=== PATIENT | male | born 1950 | race Caucasian/White ===

== ENCOUNTER 2019-01-19 02:57 | Observation (INO) | payer OTHER, MEDICARE ==
--- NOTE | 2019-01-19 03:10 | PDOC ---
History of Present Illness - General Chief Complaint: Pain, Acute Stated Complaint: CHEST DISCOMFORT X 3 HOURS Time Seen by Provider: 01/19/19 03:10 History Source: Patient Exam Limitations: No Limitations - History of Present Illness Initial Comments: 01/19/19 03:15 This is a 60-year-old male who comes in complaining of left-sided chest pain associated with some nausea and diaphoresis and radiation to his axilla. Pain is primarily to the left of the sternum. Patient said it is worse when he takes a deep breath or worse when he massages the area. Patient has history of hypertension, high cholesterol and is prediabetic with a family history of coronary artery disease. Allergies: as per nursing notes Past Medical History: As per HPI Social history: Lives with family. No smoking. No alcohol. No illicit drugs. Surgical history: None General: No fevers or chills, no weakness, no weight loss HEENT: No change in vision. No sore throat,. No ear pain CardioVascular: + chest discomfort. No shortness of breath Respiratory:No cough, or wheezing. Gastrointestinal: + nausea, vomiting, diarrhea or constipation, No rectal bleeding Genitourinary: No dysuria, hematuria, or frequency Musculoskeletal: No joint or muscle pain or swelling Neurologic: No headache, vertigo, dizziness or loss of consciousness Psychiatric: nor depression Skin: No rashes or easy bruising Endocrine: no increased thirst or abnormal weight change Allergic: no skin or latex allergy All other systems reviewed and normal Exam: General: Well-nourished well-developed individual, no acute distress HEENT: Throat: Normal, tonsils normal, no erythema or exudate Neck: Supple, no meningeal signs, no lymphadenopathy Eyes::Pupils equal reactive and round, extraocular motion intact Chest: Nontender to palpation Cardiac: S1-S2 normal, regular rate and rhythm, no murmurs rubs or gallops Respiratory: Lungs clear to auscultation bilateral Abdomen: Soft, nondistended, normal bowel sounds, there is no tenderness on palpation diffusely Extremities: Warm, dry, no cyanosis, clubbing, or edema Skin: No rashes Neuro: Alert and oriented x3, CN II - XII intact, nonfocal exam with normal strength, normal sensation, normal reflexes, normal gait, Psych: Normal mood and affect Assessment and plan: This is a 60-year-old male with left-sided chest pain associated with some nausea and diaphoresis. Patient's work-up was negative including EKG, chest x-ray and labs. However patient's heart score is 4 and based on his multiple risk factors and age patient will be admitted for further evaluation and rule out ACS Past History - Past Medical History Allergies/Adverse Reactions: Allergies Allergy/AdvReac Type Severity Reaction Status Date / Time No Known Allergies Allergy Unverified 02/15/14 05:59 Home Medications: Ambulatory Orders Amlodipine Besylate 2.5 mg PO DAILY 01/19/19 Paroxetine HCl [Paxil] 10 mg PO HS 01/19/19 Ramipril 10 mg PO DAILY 01/19/19 Simvastatin 40 mg PO HS 01/19/19 HTN: Yes Hypercholesterolemia: Yes Kidney Stones: Yes Psychiatric Problems: Yes (ANXIETY) - Psycho Social/Smoking Cessation Hx Smoking History: Never smoked Heart Score/ECG Review - History History: Slightly suspicious - Electrocardiogram EKG: Normal - Age Age: >/= 65 - Risk Factors Based on the list above the patient has:: >/=3 risk factors or Hx atherosclerotic disease - Troponin Troponin: </= normal limit - Score Heart Score - Total: 4 ED Treatment Course - LABORATORY CBC & Chemistry Diagram: 01/19/19 03:35 01/19/19 03:35 Discharge - Discharge Information Problems reviewed: Yes Clinical Impression/Diagnosis: Chest pain at rest Condition: Stable Disposition: HOME - Admission Yes - Follow up/Referral - Patient Discharge Instructions - Post Discharge Activity
[2019-01-19] MEDS ORDERED: ASPIRIN 81 MG CHEWABLE TABLETS PO ONE (03:14)
[2019-01-19] MEDS ORDERED: ASPIRIN 325 MG TABLET ONE (03:15)
[2019-01-19 03:51] LABS: BASO % 0.5 % (0-2.0); EOS % 2.6 % (0-4.5); HEMATOCRIT 41.2 % (35.4-49); HEMOGLOBIN 14.1 GM/dL (11.7-16.9); LYMPH % 16.3 % (8-40); MCHC 34.3 g/dl (32.0-35.9); MEAN CELL VOLUME 96.3 fl (80-96); MEAN PLT VOLUME 8.9 fl (7.5-11.1); MONO % 9.8 % (3.8-10.2); NEUT % 70.8 % (42.8-82.8); PLATELET COUNT 220 K/MM3 (134-434); RBC 4.28 M/mm3 (4.00-5.60); RDW 12.9 % (11.9-15.9); WHITE BLOOD COUNT 6.3 K/mm3 (4.0-10.0)
[2019-01-19 04:38] LABS: ALBUMIN 3.8 g/dl (3.4-5.0); ALK PHOS 97 U/L (45-117); ANION GAP 5 MMOL/L (8-16); BILIRUBIN,TOTAL 0.4 mg/dL (0.2-1); BLOOD UREA NITROGEN 17.2 mg/dL (7-18); CALCIUM 8.3 mg/dL (8.5-10.1); CHLORIDE 108 mmol/L (98-107); CO2 26 mmol/L (21-32); CREATININE 0.8 mg/dL (0.55-1.3); GLUCOSE,RANDOM 110 mg/dL (74-106); POTASSIUM 3.9 mmol/L (3.5-5.1); SGOT/AST 17 U/L (15-37); SGPT/ALT 23 U/L (13-61); SODIUM 139 mmol/L (136-145); TOT PROT 6.7 g/dl (6.4-8.2)
[2019-01-19 06:21] VITALS: BMI 27.0
--- NOTE | 2019-01-19 08:50 | HP ---
CHIEF COMPLAINT: Chest pain PCP: Debby Catherine [facility] HISTORY OF PRESENT ILLNESS: 68 year-old male with a PMH significant for HTN, HLD, renal colic, and anxiety. Presented to the ED for evaluation of left-sided chest pain. Awoke at 1am with numbness in 3 fingers of left hand, sweaty, and thirsty. He experieced pain over left nipple, similar to musculoskeltal pain he has had there for years. This time, however, he experienced shooting pains in his chest with deep inspiration, and this was new. He was concerned so came to the ED. The musculoskeltal pain improves with massage. The shooting pains are still intermittent. ER course was notable for: (1) Troponin neg x 1 (2) ASA 325mg x 1 Recent Travel: No PAST MEDICAL HISTORY: Hypertension Hyperlipidemia Renal colic Anxiety PAST SURGICAL HISTORY: Left knee replacement Social History: rehabs and restores historical houses; lives in [place] Smoking: smoked as a teenager Alcohol: 3 glasses of wine per day Drugs: no Family history: Mother 85 lung cancer; father 73 CVA; 3 siblings a&w; 2 children a&w Allergies No Known Allergies Allergy (Unverified 02/15/14 05:59) HOME MEDICATIONS: Home Medications Medication Instructions Recorded Amlodipine Besylate 2.5 mg PO DAILY 01/19/19 Paroxetine HCl [Paxil] 10 mg PO HS 01/19/19 Ramipril 10 mg PO DAILY 01/19/19 Simvastatin 40 mg PO HS 01/19/19 REVIEW OF SYSTEMS CONSTITUTIONAL: Absent: fever, chills, diaphoresis, generalized weakness, malaise, loss of appetite, weight change HEENT: Absent: rhinorrhea, nasal congestion, throat pain, throat swelling, difficulty swallowing, mouth swelling, ear pain, eye pain, visual changes CARDIOVASCULAR: Absent: chest pain, syncope, palpitations, irregular heart rate, lightheadedness , peripheral edema RESPIRATORY: Absent: cough, shortness of breath, dyspnea with exertion, orthopnea, wheezing, stridor, hemoptysis GASTROINTESTINAL: Absent: abdominal pain, abdominal distension, nausea, vomiting, diarrhea, constipation, melena, hematochezia GENITOURINARY: Absent: dysuria, frequency, urgency, hesitancy, hematuria, flank pain, genital pain MUSCULOSKELETAL: Absent: myalgia, arthralgia, joint swelling, back pain, neck pain SKIN: Absent: rash, itching, pallor HEMATOLOGIC/IMMUNOLOGIC: Absent: easy bleeding, easy bruising, lymphadenopathy, frequent infections ENDOCRINE: Absent: unexplained weight gain, unexplained weight loss, heat intolerance, cold intolerance NEUROLOGIC: Absent: headache, focal weakness or paresthesias, dizziness, unsteady gait, seizure, mental status changes, bladder or bowel incontinence PSYCHIATRIC: Absent: anxiety, depression, suicidal or homicidal ideation, hallucinations. PHYSICAL EXAMINATION Vital Signs - 24 hr 01/19/19 01/19/19 01/19/19 03:02 04:49 05:22 Temperature 97.5 F L Pulse Rate 75 68 Pulse Rate [ 74 Left] Respiratory 16 16 18 Rate Blood Pressure 146/89 Blood Pressure 122/78 [Right] O2 Sat by Pulse 97 98 97 Oximetry (%) 01/19/19 06:01 Temperature 98 F Pulse Rate 59 L Pulse Rate [ Left] Respiratory 18 Rate Blood Pressure 130/70 Blood Pressure [Right] O2 Sat by Pulse 97 Oximetry (%) GENERAL: Awake, alert, and fully oriented, in no acute distress. HEAD: Normal with no signs of trauma. EYES: Pupils equal, round and reactive to light, extraocular movements intact, sclera anicteric, conjunctiva clear. No lid lag. EARS, NOSE, THROAT: Ears normal, nares patent, oropharynx clear without exudates. Moist mucous membranes. NECK: Normal range of motion, supple without lymphadenopathy, JVD, or masses. LUNGS: Breath sounds equal, clear to auscultation bilaterally. No wheezes, and no crackles. No accessory muscle use. HEART: Regular rate and rhythm, normal S1 and S2 without murmur, rub or gallop. ABDOMEN: Soft, nontender, not distended, normoactive bowel sounds, no guarding, no rebound, no masses. No hepatomegaly or splenomegaly. MUSCULOSKELETAL: Normal range of motion at all joints. No bony deformities or tenderness. No CVA tenderness. UPPER EXTREMITIES: 2+ pulses, warm, well-perfused. No cyanosis. No clubbing. No peripheral edema. LOWER EXTREMITIES: 2+ pulses, warm, well-perfused. No calf tenderness. No peripheral edema. NEUROLOGICAL: Cranial nerves II-XII intact. Normal speech. Normal gait. PSYCHIATRIC: Cooperative. Good eye contact. Appropriate mood and affect. SKIN: Warm, dry, normal turgor, no rashes or lesions noted, normal capillary refill. Laboratory Results - last 24 hr 01/19/19 01/19/19 01/19/19 03:35 03:35 03:35 WBC 6.3 RBC 4.28 Hgb 14.1 Hct 41.2 MCV 96.3 H MCH 33.0 MCHC 34.3 RDW 12.9 Plt Count 220 MPV 8.9 Absolute Neuts (auto) 4.5 Neutrophils % 70.8 Lymphocytes % 16.3 Monocytes % 9.8 Eosinophils % 2.6 Basophils % 0.5 Nucleated RBC % 0 Sodium 139 Potassium 3.9 Chloride 108 H Carbon Dioxide 26 Anion Gap 5 L BUN 17.2 Creatinine 0.8 Est GFR (CKD-EPI)AfAm 106.38 Est GFR (CKD-EPI)NonAf 91.79 Random Glucose 110 H Calcium 8.3 L Total Bilirubin 0.4 AST 17 ALT 23 Alkaline Phosphatase 97 Creatine Kinase Cancelled Troponin I Cancelled < 0.02 Total Protein 6.7 Albumin 3.8 ASSESSMENT/PLAN: 68 year-old male with a PMH significant for HTN, HLD, renal colic, and anxiety. Placed on observation for chest pain. Chest pain --troponins neg x 2 --CXR unremarkable --ECG: not suggestive acute ischemic event --Stress echo: pending Hypertension --BP stable --continue amlodipine, ramipril Hyperlipidemia --contnue atorvastatin Renal colic --stable Anxiety --continue paroxetine FEN Fluids: PO intake adequate Electrolytes: replete as indicated Nutrition: low sodium DVT prophylaxis: oob, ambulation Dispo: continues to require inpatient care. Visit type - Emergency Visit Emergency Visit: Yes ED Registration Date: 01/19/19 Care time: The patient presented to the Emergency Department on the above date and was hospitalized for further evaluation of their emergent condition. - New Patient This patient is new to me today: Yes Date on this admission: 01/20/19 - Critical Care Critical Care patient: No
--- NOTE | 2019-01-19 09:23 | EKG ---
Test Reason : Blood Pressure : / mmHG Vent. Rate : 074 BPM Atrial Rate : 074 BPM P-R Int : 172 ms QRS Dur : 090 ms QT Int : 420 ms P-R-T Axes : 058 036 052 degrees QTc Int : 466 ms NORMAL SINUS RHYTHM NORMAL ECG NO PREVIOUS ECGS AVAILABLE Confirmed by CAROLYNE NORWOOD, SANDIP ([id number]) on 01/19/2019 9:22:45 AM Referred By: MARS JESSICA Confirmed By:SANDIP BARFIELD MD
[2019-01-19 09:32] LABS: MAGNESIUM 2.1 mg/dL (1.8-2.4); PHOSPHOROUS 3.2 mg/dl (2.5-4.9)
--- NOTE | 2019-01-19 09:37 | CON.CARD ---
Consult Consult Specialty:: Cardiology - History of Present Illness History of Present Illness: This is a 60-year-old male who comes in complaining of left-sided chest pain associated with some nausea and diaphoresis and radiation to his axilla. Pain is primarily to the left of the sternum. Patient said it is worse when he takes a deep breath or worse when he massages the area. Patient has history of hypertension, high cholesterol and is prediabetic with a family history of coronary artery disease. Allergies: as per nursing notes Past Medical History: As per HPI Social history: Lives with family. No smoking. No alcohol. No illicit drugs. Surgical history: None - History Source History Provided By: Medical Record - Past Medical History Cardio/Vascular: Yes: HTN, Hyperlipdemia - Alcohol/Substance Use Hx Alcohol Use: Yes (OCCAS) - Smoking History Smoking history: Never smoked Have you smoked in the past 12 months: No Home Medications - Allergies Allergies/Adverse Reactions: Allergies Allergy/AdvReac Type Severity Reaction Status Date / Time No Known Allergies Allergy Unverified 02/15/14 05:59 - Home Medications Home Medications: Ambulatory Orders Amlodipine Besylate 2.5 mg PO DAILY 01/19/19 Paroxetine HCl [Paxil] 10 mg PO HS 01/19/19 Ramipril 10 mg PO DAILY 01/19/19 Simvastatin 40 mg PO HS 01/19/19 Review of Systems - Review of Systems Constitutional: reports: No Symptoms Eyes: reports: No Symptoms HENT: reports: No Symptoms Neck: reports: No Symptoms Cardiovascular: reports: Chest Pain Respiratory: reports: No Symptoms Gastrointestinal: reports: No Symptoms Genitourinary: reports: No Symptoms Breasts: reports: No Symptoms Reported Musculoskeletal: reports: No Symptoms Integumentary: reports: No Symptoms Neurological: reports: No Symptoms Endocrine: reports: No Symptoms Hematology/Lymphatic: reports: No Symptoms Psychiatric: reports: No Symptoms Vital Signs: Vital Signs Temperature 98 F 01/19/19 06:01 Pulse Rate 59 L 01/19/19 06:01 Respiratory Rate 18 01/19/19 06:01 Blood Pressure 130/70 01/19/19 06:01 O2 Sat by Pulse Oximetry (%) 97 01/19/19 06:01 Constitutional: Yes: Well Nourished, No Distress, Calm Eyes: Yes: WNL, Conjunctiva Clear, EOM Intact HENT: Yes: WNL, Atraumatic, Normocephalic Neck: Yes: WNL, Supple, Trachea Midline Respiratory: Yes: WNL, Regular, CTA Bilaterally Gastrointestinal: Yes: WNL, Normal Bowel Sounds Renal/: Yes: WNL Cardiovascular: Yes: WNL, Regular Rate and Rhythm Musculoskeletal: Yes: WNL Extremities: Yes: WNL Integumentary: Yes: WNL Neurological: Yes: WNL, Alert, Oriented ...Motor Strength: WNL Psychiatric: Yes: WNL, Alert, Oriented - Other Data Labs, Other Data: CBC, BMP 01/19/19 03:35 01/19/19 03:35 Troponin, BNP 01/19/19 01/19/19 03:35 03:35 Troponin I Cancelled < 0.02 Troponin, BNP 01/19/19 01/19/19 03:35 03:35 Troponin I Cancelled < 0.02 Imaging - Results Chest X-ray: Image Reviewed (no i/e) EKG: Image Reviewed (sr wnl) Problem List - Problems (1) Chest pain at rest Code(s): R07.9 - CHEST PAIN, UNSPECIFIED (2) Kidney stone Code(s): N20.0 - CALCULUS OF KIDNEY (3) Posterior right knee pain Code(s): M25.561 - PAIN IN RIGHT KNEE Assessment/Plan This is a 60-year-old male who comes in complaining of left-sided chest pain associated with some nausea and diaphoresis and radiation to his axilla. PLAN r/o mi telemetry ASA ECHO ECHO ST
[2019-01-19] MEDS ORDERED: RAMIPRIL 5 MG CAPSULE (FP) PO SCH (10:00)
[2019-01-19] MEDS ORDERED: amLODIPine BESYLATE 2.5 MG TABLET (FP) PO SCH (10:00)
--- NOTE | 2019-01-19 12:57 | ECHO ---
Name: BRANCH, MATTHEW Exam:Adult Echocardiogram Study Date: 01/19/2019 11:29 AM Age: 68 yrs Height: 78 in Weight: 234 lb BSA: 2.4 m2 MMode/2D Measurements & Calculations IVSd: 0.93 cm Ao root diam: 3.2 cm LVIDd: 4.6 cm LA dimension: 4.5 cm LVIDs: 3.4 cm LVPWd: 1.2 cm LVPWs: 1.4 cm EDV(Teich): 96.3 ml ESV(Teich): 47.9 ml LVOT diam: 2.3 cm LAV (MOD-bp): 82.0 ml Doppler Measurements & Calculations MV E max alejandro: 63.2 cm/sec Ao V2 max: 126.1 cm/sec MV A max alejandro: 89.8 cm/sec Ao max P.4 mmHg MV E/A: 0.70 Ao V2 mean: 94.3 cm/sec MV dec time: 0.15 sec Ao mean P.8 mmHg Ao V2 VTI: 23.9 cm BASILIO(I,D): 4.5 cm2 BASILIO(V,D): 3.5 cm2 LV V1 max P.4 mmHg MR max alejandro: 443.4 cm/sec LV V1 mean P.8 mmHg MR max P.6 mmHg LV V1 max: 105.1 cm/sec LV V1 mean: 80.3 cm/sec LV V1 VTI: 25.4 cm SV(LVOT): 107.7 ml TR max alejandro: 275.9 cm/sec TR max P.7 mmHg PA V2 max: 122.2 cm/sec Med Peak E' Alejandro: 5.2 cm/sec PA max P.0 mmHg Med E/e': 12.2 Lat Peak E' Alejandro: 11.7 cm/sec Lat E/e': 5.4 Procedure A two-dimensional transthoracic echocardiogram with color flow and Doppler was performed. Left Ventricle The left ventricular size, thickness and function are normal. The left ventricular ejection fraction is normal. E/A reversal consistent with but not diagnostic of poor LV compliance. The left ventricular w all motion is normal. Right Ventricle The right ventricle is normal in size and function. Atria The left atrium is mildly dilated. The right atrium is mildly dilated. Mitral Valve There is mild mitral valve thickening. There is no mitral valve stenosis. There is trace to mild mitr al regurgitation. Tricuspid Valve There is mild tricuspid valve thickening. There is no tricuspid stenosis. There is mild to moderate t ricuspid regurgitation. Right ventricular systolic pressure is elevated at 40-50mmHg. Aortic Valve The aortic valve is not well visualized. No hemodynamically significant valvular aortic stenosis. No aortic regurgitation is present. Pulmonic Valve The pulmonic valve is not well visualized. Great Vessels The aortic root is normal size. Pericardium/Pleura There is no pericardial effusion. Interpretation Summary The left ventricular size, thickness and function are normal The left ventricular ejection fraction is normal. The left ventricular wall motion is normal. There is mild to moderate tricuspid regurgitation. Right ventricular systolic pressure is elevated at 40-50mmHg. The left atrium is mildly dilated. The right atrium is mildly dilated. E/A reversal consistent with but not diagnostic of poor LV compliance There is trace to mild mitral regurgitation. MD Walker [place] 01/19/2019 12:57 PM
--- NOTE | 2019-01-19 13:59 | ECHO ---
Name: MATTHEW GOMES Exam:Exerise Stress Echocardiogram Study Date: 01/19/2019 01:25 PM Age: 68 yrs Procedure Details: Exercise Stress Echocardiogram with 2D, M-mode and Doppler (Color Flow and Spectral Display). Stress Comments Normal resting electrocardiogram. A treadmill exercise test according to Jonny protocol was performed. Target Heart Rate was achieved (85% of maximum age-predicted heart rate). Exercise Echocardiogram Negative exercise stress echocardiogram, adequate by heart rate criteria, without symptoms, diagnosti c EKG changes or echocardiographic evidence of ischemia. Interpretation Summary Exercise Stress Echocardiogram with 2D, M-mode and Doppler (Color Flow and Spectral Display) Normal resting electrocardiogram. A treadmill exercise test according to Jonny protocol was performed. Target Heart Rate was achieved (85% of maximum age-predicted heart rate). Negative exercise stress echocardiogram, adequate by heart rate criteria, without symptoms, diagnosti c EKG changes or echocardiographic evidence of ischemia Reading Physician: MD Walker [place] 01/19/2019 01:59 PM
--- NOTE | 2019-01-19 15:18 | DS ---
Physical Exam: SUBJECTIVE: Patient seen and examined. Feels well. Denies chest pain. Feels ready to go home. OBJECTIVE: Vital Signs Period Temp Pulse Resp BP Sys/Pan Pulse Ox Last 24 Hr 97.5 F-99.0 F 59-75 16-18 122-146/70-89 97-98 PHYSICAL EXAM GENERAL: The patient is awake, alert, and fully oriented, in no acute distress. LUNGS: Breath sounds equal, clear to auscultation bilaterally, no wheezes, no crackles, no accessory muscle use. HEART: Regular rate and rhythm, S1, S2 ABDOMEN: Soft, nontender, nondistended EXTREMITIES: 2+ pulses, warm, well-perfused, no edema. NEUROLOGICAL: Cranial nerves II through XII grossly intact. Normal speech, gait not observed. LABS Laboratory Results - last 24 hr 01/19/19 01/19/19 01/19/19 03:35 03:35 03:35 WBC 6.3 RBC 4.28 Hgb 14.1 Hct 41.2 MCV 96.3 H MCH 33.0 MCHC 34.3 RDW 12.9 Plt Count 220 MPV 8.9 Absolute Neuts (auto) 4.5 Neutrophils % 70.8 Lymphocytes % 16.3 Monocytes % 9.8 Eosinophils % 2.6 Basophils % 0.5 Nucleated RBC % 0 Sodium 139 Potassium 3.9 Chloride 108 H Carbon Dioxide 26 Anion Gap 5 L BUN 17.2 Creatinine 0.8 Est GFR (CKD-EPI)AfAm 106.38 Est GFR (CKD-EPI)NonAf 91.79 Random Glucose 110 H Calcium 8.3 L Phosphorus Magnesium Total Bilirubin 0.4 AST 17 ALT 23 Alkaline Phosphatase 97 Creatine Kinase Cancelled Troponin I Cancelled < 0.02 Total Protein 6.7 Albumin 3.8 Triglycerides Cholesterol Total LDL Cholesterol HDL Cholesterol TSH 01/19/19 01/19/19 09:00 09:00 WBC RBC Hgb Hct MCV MCH MCHC RDW Plt Count MPV Absolute Neuts (auto) Neutrophils % Lymphocytes % Monocytes % Eosinophils % Basophils % Nucleated RBC % Sodium Potassium Chloride Carbon Dioxide Anion Gap BUN Creatinine Est GFR (CKD-EPI)AfAm Est GFR (CKD-EPI)NonAf Random Glucose Calcium Phosphorus 3.2 Magnesium 2.1 Total Bilirubin AST ALT Alkaline Phosphatase Creatine Kinase Troponin I < 0.03 Total Protein Albumin Triglycerides 40 Cholesterol 141 Total LDL Cholesterol 71 HDL Cholesterol 62 H TSH 0.93 HOSPITAL COURSE: Date of Admission:01/19/19 Date of Discharge: 01/19/19 Pre hospital course 68 year-old male with a PMH significant for HTN, HLD, renal colic, and anxiety. Presented to the ED for evaluation of left-sided chest pain associated with some nausea and diaphoresis and radiation to his axilla. Pain is primarily to the left of the sternum. Patient said it is worse when he takes a deep breath or worse when he massages the area. Patient has history of hypertension, high cholesterol and is prediabetic with a family history of coronary artery disease. ER course (1) Troponin neg x 1 (2) ASA 325mg x 1 68 year-old male with a PMH significant for HTN, HLD, renal colic, and anxiety. Placed on observation for chest pain. Subsequent hospital course Chest pain --troponins neg x 2 --CXR unremarkable --ECG: not suggestive acute ischemic event --Echo: LV normal; RV normal; BLAE; trace to mild MR; mild to moderate TR; pHTN --Exercise stress echo: negative Hypertension --BP stable --continued amlodipine, ramipril Hyperlipidemia --contnued atorvastatin Renal colic --stable Anxiety --continued paroxetine Minutes to complete discharge: 35 Discharge Summary Problems reviewed: Yes Reason For Visit: CHEST PAIN R/O ACS Current Active Problems Chest pain at rest (Acute) Condition: Improved - Instructions Diet, Activity, Other Instructions: It is recommended you follow up with your cardiololgist within 1-2 weeks of your discharge. Return to the emergency department for any new or worsening symptoms. Referrals: Erlin Ricardo MD [Non Staff, Medical] - 2 Weeks Disposition: HOME - Home Medications Comprehensive Discharge Medication List: Ambulatory Orders Amlodipine Besylate 2.5 mg PO DAILY 01/19/19 Paroxetine HCl [Paxil] 10 mg PO HS 01/19/19 Ramipril 10 mg PO DAILY 01/19/19 Simvastatin 40 mg PO HS 01/19/19 This patient is new to me today: No Emergency Visit: Yes ED Registration Date: 01/19/19 Care time: The patient presented to the Emergency Department on the above date and was hospitalized for further evaluation of their emergent condition. Critical Care patient: No - Discharge Referral Referred to [facility] No
[2019-01-19 15:35] VITALS: BP 136/75; PULSE 70; TEMP 97.5
[2019-01-19] MEDS ORDERED: ATORVASTATIN CA 20 MG TABLET (FP) PO SCH (22:00)
[2019-01-19] MEDS ORDERED: PARoxetine HCL 10 MG TABLET PO SCH (22:00)
[2019-01-20] MEDS ORDERED: ASPIRIN 81 MG CHEWABLE TABLETS PO SCH (10:00)
== END 2019-01-19 16:10 | disposition home or self-care (01) ==
LOC: FER 02:57 → FM/S 05:09
PROVIDERS: ADMIT Internal Medicine; ATTEND Nurse Practitioner Acute Care
DX: R07.89 Other chest pain (principal); I10 Essential (primary) hypertension; E78.5 Hyperlipidemia, unspecified; F41.9 Anxiety disorder, unspecified; Z87.442 Personal history of urinary calculi
CPT/HCPCS: 36415; 71045-TC-FY; 80053; 80061; 83735; 84100; 84443; 84484; 85025; 93005; 93306-TC; 93351; 99283-25; G0378

== ENCOUNTER 2020-10-20 17:20 | Emergency (ER) | payer OTHER, MEDICARE ==
[2020-10-20 17:29] VITALS: TEMP 97.8; BMI 25.9
[2020-10-20 18:01] LABS: BASO % 1.4 % (0-2.0); HEMATOCRIT 39.8 % (35.4-49); HEMOGLOBIN 13.7 GM/dl (11.7-16.9); MCH 33.2 pg (25.7-33.7); MCHC 34.5 g/dl (32.0-35.9); MEAN CELL VOLUME 96.2 fl (80-96); MEAN PLT VOLUME 8.7 fl (7.5-11.1); MONO % 8.3 % (3.8-10.2); NEUT % 72.3 % (42.8-82.8); PLATELET COUNT 196 10^3/uL (134-434); RBC 4.14 M/mm3 (4.00-5.60); RDW 12.3 % (11.9-15.9); WHITE BLOOD COUNT 5.7 K/mm3 (4.0-10.8)
[2020-10-20 18:20] LABS: ACTIVATED PTT 28.9 SECONDS (25.2-36.5)
[2020-10-20 18:24] LABS: INR 1.09 (0.82-1.09); PROTHROMBIN TIME (PATIENT) 12.1 SEC (10.2-13.0)
[2020-10-20 18:29] LABS: ALBUMIN 3.7 g/dl (3.4-5.0); ALK PHOS 63 U/L (45-117); ANION GAP 7 MMOL/L (8-16); BILIRUBIN,TOTAL 0.6 mg/dl (0.2-1); CALCIUM 8.5 mg/dl (8.5-10); CHLORIDE 104 mmol/L (98-107); CO2 24 mmol/L (21-32); CREATININE 0.6 mg/dl (0.55-1.3); GLUCOSE,RANDOM 107 mg/dl (74-106); SGOT/AST 14 U/L (15-37); SGPT/ALT 13 U/L (13-61); SODIUM 135 mmol/L (136-145); TOT PROT 5.8 g/dl (6.4-8.2)
[2020-10-20 20:52] VITALS: BP 135/80; PULSE 56
== END 2020-10-21 00:01 | disposition home or self-care (01) ==
LOC: FER 17:20
DX: R07.89 Other chest pain (principal)
CPT/HCPCS: 36415; 80053; 82550; 84484; 85025; 85610; 85730; 93005; 99284-25